=== PATIENT | female | born 1980 | race Caucasian/White ===

== ENCOUNTER 2024-04-13 19:02 | Emergency (ER) | payer MEDICARE, SELFPAY ==
[2024-04-13 19:09] VITALS: BP 174/114
[2024-04-13 19:30] LABS: % Basophils 0.6 % (0-2); % Eosinophils 1.5 % (0-6); % Immature Granulocytes 0.4 % (0-0.5); % Lymphocytes 31.8 % (20.5-51.1); % Monocytes 6.3 % (1.7-9.3); % Neutrophils 59.4 % (42.2-75.2); Absolute Basophils 0.1 10^3/uL (0-0.2); Absolute Eosinophils 0.2 10^3/uL (0-0.7); Absolute Immature Granulocytes 0.1 10^3/uL (0-0.05); Absolute Lymphocytes 3.8 10^3/uL (1.2-3.4); Absolute Monocytes 0.8 10^3/uL (0.1-0.6); Absolute Neutrophils 7.1 10^3/uL (1.4-6.5); Hematocrit 38.9 % (37.0-47.0); Hemoglobin 13.2 g/dL (12.0-16.0); Mean Corp Hgb Conc. 33.9 g/dL (33.0-37.0); Mean Corpuscular Hgb 29.5 pg (27.0-31.0); Mean Corpuscular Volume 86.8 fL (81.0-99.0); Mean Platelet Volume 11.3 fL (7.4-10.4); Nucleated Red Blood Cells % 0 %; Platelet Count 229 10^3/uL (130-400); Red Blood Cell Count 4.48 10^6/uL (4.20-5.40); Red Cell Dist. Width 13.5 % (11.5-14.5)
[2024-04-13 19:31] LABS: Urine Albumin 3+ (Neg - Trace); Urine Bilirubin Negative (Negative); Urine Character Clear (Clear); Urine Color Yellow; Urine Glucose 3+ (Negative); Urine Ketone Trace (Negative); Urine Leukocyte Negative (Negative); Urine Nitrite Negative (Negative); Urine Occult Blood 1+ (Negative); Urine Urobilinogen Negative (Neg - 1+)
[2024-04-13 19:40] LABS: HCG, Serum Qualitative Screen Negative
[2024-04-13 19:43] LABS: Blood Urea Nitrogen 32 mg/dl (7-17); Calcium 9.7 mg/dl (8.4-10.2); Carbon Dioxide 26 mmol/L (22-30); Chloride 104 mmol/L (98-107); Glucose 136 mg/dl (70-99); Potassium 4.3 mmol/L (3.5-5.1); Sodium 137 mmol/L (135-145); eGFR > 60.00
[2024-04-13 19:47] LABS: Urine Squamous Cell 16-20 /LPF (Few)
[2024-04-13 19:51] LABS: Urine Red Blood Cell 26-30 /HPF (0-2)
[2024-04-13 19:52] LABS: Urine Bacteria Few (Negative)
--- NOTE | 2024-04-13 20:49 | ED.GENMED ---
History of Present Illness
General
Chief Complaint: Abdominal Pain
Source: patient
Exam Limitations: none
Time Seen by Provider: 04/13/24 20:17
Travel History
Have you had any contact with someone who has COVID-19?: No
Do you have any symptoms of coronavirus? Fever > 100 degrees, chills, cough, shortness of breath, sore throat, loss of taste or smell, muscle aches, or headache?: No
History of Present Illness
History of Present Illness:
This is a 43 year old female that comes in with c/o right lower abd pain. States that this started on Sunday and it comes and goes. States that it goes from a -02/19. States that she is nauseated, had a headache yesterday and feels lightheaded.
Denies any fever, chills, chest pain, SOB, vomiting, diarrhea, urinary burning.
Past History
Past History
ED Past Medical History: HTN, Hypercholesterolemia, IDDM and Other (Spinal fractures, Ovarian cyst)
ED Past Surgical History: Appendectomy
Social History
Tobacco: Non-smoker
Alcohol: None
Personal:
Living: with family
Review of Systems
Review of Systems
All Other Systems: ROS reviewed and negative except as documented in HPI and ROS
Constitutional: Reports no symptoms; Denies fever or chills
EENT: Reports no symptoms
Respiratory: Reports no symptoms; Denies cough or trouble breathing
Cardiac: Reports no symptoms; Denies chest pain
ABD/GI: Reports abdominal pain and nausea; Denies vomiting or diarrhea
: Reports no symptoms; Denies dysuria, frequency or urgency
Musculoskeletal: Reports no symptoms
Skin: Reports no symptoms
Neurological: Reports other (Lightheaded); Denies dizzy or headache (Yesterday not today)
Psychiatric: Reports no symptoms
Phy Exam
General Physical Exam
General Presentation: no apparent distress
General age: appears stated age
General Skin: warm and dry
General Habitus: normal
General Mental: alert
General Hydration: appears well hydrated
ENT Exam
ENT Exam: TM's normal, pharynx normal and neck supple
Eye Exam
Eye Exam: EOMI
Cardiovascular Exam
Cardiovascular Exam: regular rate/rhythm, no edema, no murmur and normal peripheral pulses
Pulmonary Exam
Pulmonary Exam: lungs clear, no respiratory distress, no rales, chest non tender, no crackles, no rhonchi, no wheezing and no cough
Gastrointestinal Exam
Gastrointestinal Exam: normal bowel sounds, soft, no organomegaly, no pulsatile mass, non distended and tender (RLQ tenderness with palpation)
Musculoskeletal Exam
Musculoskeletal Exam: full ROM and no edema
Skin Exam
Skin Exam: normal color, warm/dry, no rash and no petechia
Course
Orders/Labs/Results
Orders:
Orders
04/13/24 19:13
Test Result ONCE
04/13/24 19:22
Basic Metabolic Panel Urgent
Complete Blood Count/With Diff Urgent
HCG, Serum Qualitative Screen Urgent
Urinalysis Reflex To Culture Urgent
Date Specimen was Collected: 04/13/24
Time Specimen was Collected: 19:13
Urine Microscopic Reflex Cult Urgent
04/13/24 20:48
0.9% Sodium Chloride 1000 ml [Nss] 1,000 ml IV BOLUS
US Pelvis Only (non-obstetric) Urgent
Comment:
Reason For Exam: right lower abd pain
04/14/24 00:01
CT Abd/pelvis W Iv Cont Urgent
Reason For Exam: Right lower abd pain
Abnormal Lab Results
04/13/24
19:22
WBC 12.0 H 10^3/uL
(4.8-10.8)
MPV 11.3 H fL
(7.4-10.4)
Abs Immat Gran (auto) 0.1 H 10^3/uL
(0-0.05)
Absolute Neuts (auto) 7.1 H 10^3/uL
(1.4-6.5)
Absolute Lymphs (auto) 3.8 H 10^3/uL
(1.2-3.4)
Absolute Monos (auto) 0.8 H 10^3/uL
(0.1-0.6)
BUN 32 H mg/dl
(7-17)
Glucose 136 H mg/dl
(70-99)
Urine Ketones Trace A
(Negative)
Ur Occult Blood Reflex 1+ A
(Negative)
Urine RBC 26-30 A /HPF
(0-2)
Urine Bacteria (Reflex) Few A
(Negative)
Urine Glucose 3+ A
(Negative)
Urine Albumin (Reflex) 3+ A
(Neg - Trace)
04/13/24 19:22
04/13/24 19:22
Leukocytosis, Dehydration. Glucose nonfasting. HCG negative. Urine negative for infection but blood noted.
Vital Signs
Initial and Last Documented VS:
Initial Vital Signs
Temp Pulse Resp BP Pulse Ox
99.3 F 107 18 174/114 98
04/13/24 19:09 04/13/24 19:09 04/13/24 19:09 04/13/24 19:09 04/13/24 19:09
Last Documented Vital Signs
Temp Pulse Resp BP Pulse Ox
98.4 F 110 20 160/100 98
04/14/24 00:48 04/14/24 00:48 04/14/24 00:48 04/14/24 00:48 04/14/24 00:48
MDM/Problems Addressed
Differential Diagnosis Includes:
Ovarian cyst. Renal calculus
MDM/Problems Addressed:
This is a 43 year old female that comes in with c/o right lower abd pain. States that this started on Sunday and comes and goes.
Matti get labs, Urine, Pelvic ultrasound and CT if needed
Back into see patient. Explained that her US was normal and that the CT is negative for any acute process. There is a right corpus luteum in the right ovary. Patient may be very sensitive to her ovulation. Patient to follow up with the OB/GN or the
Family doctor. Increase her water intake. Return with any concerns.
Chronic conditions affecting care:
NA
Acute Exacerbation and/or Progression of Chronic Illness:
NA
*Radiology
Radiology exam reviewed: radiology read reviewed (US night hawk-Only transabdominal images obtained. Uterus and endometrial stripe are unremarkable. Ovaries are unremarkable bilaterally with normal follicles. No evidence of torsion. No free fluid.
CT- No specific findings to account for the patient's abdominal pain. Appendectomy. 2.3cm cystic left), all reviewed NAD by ED Provider (CT cont-ovary with a possible hematocrit level may reflect a small hemorrhagic cyst. Corpus luteum in the right
ovary. Consider pelvic ultrasound for further characterization, urgency to be based on severity of clinical symptoms. NO renal or obstructing ureteral stones. No hydronephrosis or ) and other (CT cont-hydroureter. Bowel is without evidence of
obstruction. Diverticulosis without evidence of diverticulitis. Gallbladder is unremarkable. No obvious stones but CT has a diminished sensitivity for noncalcified gallstones. No biliary dilation. )
*Pulse Oximetry
Patient hypoxic: no
*EKG
Interpreted by ED Provider?: NA
Rate: EKG- N/A
*Lpn Private Duty Interpretation
Rate: Lpn Private Duty- N/A
*Critical Care Note
Total Time (30-74mins, 75-104mins- exclusive of procedures): Not Applicable
ED Attending Note
-
Portions of this chart may have been created with voice recognition software.� Occasional wrong word or��sound alike� substitutions may have occurred due to the inherent limitations of voice recognition software.
Discharge Plan
Departure
Patient Disposition: Home (Routine Discharge)
Date of Disposition: 04/14/24
Time of Disposition: 01:20
Patient with high blood pressure during this ER visit?: Yes
Condition: Good
Covid-19: Not Applicable
Discharge Problem:
Abdominal pain, right lower quadrant
Instructions: Abdominal Pain, BLOOD PRESSURE
Prescriptions:
No Action
Farxiga
10 mg PO DAILY
gabapentin
500 mg PO TID
rosuvastatin
10 mg PO DAILY
sertraline
10 mg PO DAILY
Referrals:
Gilberto Yao, [Family Provider] - Follow up in 2-3 days
Activity Restrictions/Additional Instructions:
As discussed, your blood work shows that you are dehydrated. Your US is normal. Your CT is negative for any acute process. There is a corpus luteum in the right ovary. You may be very sensitive to your Ovulation. Please increase your water intake to
8-8oz glasses daily. Follow up with the family doctor and your [facility] for further evaluation. IF YOU HAVE INCREASED OR CHANGING PAIN, FEVER, OR YOU HAVE ANY OTHER CONCERNS PLEASE RETURN TO THE EMERGENCY ROOM.
Interventions
Interventions:
*Risk Screen - Suicide Last Done: 04/13/24 19:09
*General Assessment Last Done: 04/13/24 19:09
*Neglect/Abuse Screening Last Done: 04/13/24 19:09
ED- Fall Risk Assessment Last Done: 04/13/24 22:00
BC-Dmuuzy-Vgaxskgzur Assessment Last Done: 04/13/24 22:00
Discharge Date and Time
Print Language: [id number]
[2024-04-13 22:00] VITALS: BP 157/90
[2024-04-13] MEDS: NSS 1000 IV (22:20)
[2024-04-13 23:48] VITALS: BP 160/90
[2024-04-14 00:48] VITALS: BP 160/100
[2024-04-14 01:25] VITALS: BP 130/90
== END 2024-04-14 02:00 | disposition home or self-care (01) ==
LOC: EMR 19:02
PROVIDERS: Emergency Medicine; EMERGENCY PHYSICIAN Student in an Organized Health Care Education/Training Program; FAMILY PHYSICIAN Internal Medicine
DX: R10.31 Right lower quadrant pain (principal); R51.9 Headache, unspecified; R42 Dizziness and giddiness; I10 Essential (primary) hypertension; E78.00 Pure hypercholesterolemia, unspecified; E11.9 Type 2 diabetes mellitus without complications; E86.0 Dehydration
CPT/HCPCS: 99284; 96360; 74177; 76856; 80048; 81003; 81015; 84703; 85025; Q9967